=== PATIENT | female | born 1975 | race Caucasian/White ===

== ENCOUNTER 2023-03-10 07:25 | Emergency (ER) | payer MEDICAID ==
[~2023-03-10] VITALS: Ht 167.6 cm; Wt 72.6 kg
[2023-03-10 07:57] VITALS: BP 111/79; PULSE 107; RESP 22; TEMP 98; O2SAT 98
[2023-03-10] MEDS ORDERED: MORPHINE SULFATE 4 MG/ML SYR IM ONE (08:20)
[2023-03-10] MEDS ORDERED: ONDANSETRON 4 MG ODT PO ONE (08:20)
[2023-03-10] MEDS ORDERED: ONDA8TAB87 PO (09:20)
[2023-03-10] MEDS ORDERED: ACET-503 PO (09:20)
[2023-03-10] MEDS ORDERED: IBUP-2213 PO (09:20)
[2023-03-10 09:50] VITALS: BP 104/62; PULSE 94; RESP 16; O2SAT 94
== END 2023-03-10 09:50 | disposition home or self-care (01) ==
LOC: MED 07:25
DX: M54.50 Low back pain, unspecified (principal); R11.0 Nausea; R68.83 Chills (without fever); Z98.890 Other specified postprocedural states
CPT/HCPCS: 81002; 81025; 96372; 99283; J2270; Q0162